=== PATIENT | male | born 1995 | race African-American/Black ===

== ENCOUNTER 2024-10-31 15:23 | Outpatient (AMB) | payer OTHER, SELFPAY ==
--- NOTE | 2024-10-31 15:25 | MHC.PC.OV ---
Vital Signs 10/31/24 15:32 Height 5 ft 7 in Weight 367 lb BMI 57.5 BP 138/73 Blood Pressure Location Rt brachial Position Sitting Respiration 16 Pulse 99 Pulse Source Pulse Oximeter Temp 98.7 F Temp Source Oral Pulse Oximetry (%) 98 Oxygen Delivery Method Room Air Intake Visit Reasons: Est. Care Intake Note: patient here for new patient visit Butter Liquefier Required: No Allergies No Known Allergies Allergy (Verified 10/31/24 15:39) Medication List - Last Reconciled 10/31/24 by Lydia Flynn CNP No Known Home Meds Tobacco use date assessed: 10/31/24 Dental Screening Dental Screen Date: 10/31/24 Did you have a dental visit in the last 12 months?: No Did you have a dental problem in the last 6 months where you did not have access to dental care?: No Was dental information given to patient?: Yes HPI HPI Comments History of Present Illness Details 29-year-old male presents to establish care. Prior PCP? - Dr. Chano Palacios, private practice Last office visit/CPE/labs - 2018 Acute issue(s) - None Past Medical History - Morbid obesity - Discoloration and hardened skin of the left calf to ankle for the past 3 years. Denies pain, swelling, tingling, numbness, or loss of sensation. Surgical History - None Family History - None Social History - Nonsmoker. Does not vape. Drinks 2 mixed drinks socially/every 6 months. Denies recreational drug use - Recently started making healthy dietary choices and have lost about 7 lb in the past 2 months. Exercises routinely. Generally sleep well Health maintenance - Last eye exam was 4-5 years ago. Referred to Ophthalmology for routine eye exam - Last dental visit was over about 7 years ago; encouraged to schedule an appointment with his dentist for routine dental care - Last tetanus vaccine was about 8 years ago. 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 1. Little interest or pleasure in doing things: several days 2. Feeling down, depressed, or hopeless: not at all 3. Trouble falling or staying asleep, or sleeping too much: more than half the days 4. Feeling tired or having little energy: more than half the days 5. Poor appetite or overeating: not at all 6. Feeling bad about yourself - or that you are a failure or have let yourself or your family down: not at all 7. Trouble concentrating on things, such as reading the newspaper or watching television: not at all 8. Moving or speaking so slowly that other people could have noticed. Or the opposite - being so fidgety or restless that you have been moving around a lot more than usual: not at all 9. Thoughts that you would be better off or of hurting yourself in some way: not at all Total score: 5 Depression Screening Interpretation: Positive Depression Screening Done: Yes 64886 - PHQ-9 Billing: Yes Source: Developed by Drs. Dave Coleman, Lara Sainz, Barrington Lerner and colleagues, with an educational florencio from [employer]. Thrive Questionnaire Date Thrive assessed: 10/31/24 I am a: Patient What is your living situation today?: I have a steady place to live Within the past 12 months, did the food you bought not last and you didn't have the money to get more?: Never true Within the past 12 months, did you worry whether your food would run out before you got money to buy more?: Sometimes True Do you have trouble paying for medicines?: I choose not to answer this question Do you have trouble getting transportation to medical appointments?: Yes Do you have trouble paying your heating and electricity bill?: No Do you have trouble taking care of your child, family member or friend?: No Do you have trouble with day-to-day activities such as bathing, preparing meals, shopping, managing finances, etc.?: No Are you currently unemployed and looking for a job?: No Are you interested in more education?: I choose not to answer this question Please select the resources that you would like help with: None Currently or been in a relationship where the following occur: No concerns reported THRIVE Score: 2 AUDIT C Alcohol Use Questionnaire (AUDIT-C) 1. How often do you have a drink containing alcohol?: Monthly or less 2. How many drinks containing alcohol do you have on a typical day when you are drinking?: 1 or 2 3. How often do you have six or more drinks on one occasion?: Never Total Score: 1 Score Reviewed/Action Taken: Yes COLBY-7 AMB Questionnaire COLBY-7 Date COLBY - 7 assessed: 10/31/24 Feeling nervous, anxious, or on edge: 0 = Not at all Not being able to stop or control worryin = Not at all Worrying too much about different things: 0 = Not at all Trouble relaxin = Not at all Being so restless that it is hard to sit still: 0 = Not at all Becoming easily annoyed or irritable: 0 = Not at all Feeling afraid as if something awful might happen: 0 = Not at all Total COLBY-7 score (0-4 normal; 5-9 mild; 10-14 moderate; 15-21 severe): 0 Source: Developed by Drs. Dave Coleman, Lara Sainz, Barrington Lerner and colleagues, with an educational florencio from [employer]. COLBY-7 Assessment Billing COLBY-7 Assessment Tool: COLBY-7 Assessment 98268 Review of Systems Const Details: Denies chills, Denies fatigue, Denies fever(s), Denies headache(s) and Denies weakness HEENT Denies change in vision, Denies dizziness, Denies headache(s), Denies hearing loss, Denies nasal congestion, Denies sinus pain, Denies sinus pressure and Denies sore throat Card Denies chest pain, Denies lightheadedness, Denies dyspnea and Denies other (palpitations) Resp Denies cough, Denies dyspnea and Denies wheezing GI Denies abdominal pain, Denies melena, Denies hematochezia, Denies change in bowel habits, Denies dyspepsia and Denies nausea Denies hematuria and Denies dysuria Musc Denies abnormal gait, Denies myalgias, Denies arthralgias, Denies numbness and Denies tingling Skin/Breast Denies rash, Denies unusual bruising and Denies wounds Neuro Denies abnormal gait, Denies dizziness, Denies headache(s), Denies memory loss, Denies numbness, Denies Sensory deficit (Neuro), Denies tingling and Denies weakness Psych Denies anxiety, Denies depression and Denies memory loss Endo Denies cold intolerance, Denies fatigue, Denies heat intolerance, Denies polydipsia and Denies polyuria Jesu/Lymph Denies easy bleeding and Denies easy bruising Aller/Immun Denies wheezing Physical exam (Primary Care) Vital Signs: Last Vital Signs Temp 98.7 F 10/31/24 15:32 Pulse 99 10/31/24 15:32 Resp 16 10/31/24 15:32 BP 138/73 10/31/24 15:32 Pulse Ox 98 10/31/24 15:32 Oxygen Delivery Method Room Air 10/31/24 15:32 BMI result Body Mass Index 57.5 Tobacco/Smoking Status: Tobacco use Status Tobacco use date assessed 10/31/24 10/31/24 15:32 Patient Tobacco Use Status Never used Tobacco 10/31/24 15:32 e-Cigarette/Vaping Use Never Used 10/31/24 15:32 PHQ-9: PHQ-9 Score PHQ-9: Total score 5 10/31/24 15:57 Depression Screening Interpretation: Positive Thrive Assessment: Date of Thrive Assessment Date Thrive assessed 10/31/24 10/31/24 15:26 Currently or been in a relationship where the following occur: No concerns reported Const Other: General: no acute distress, well developed, alert and awake Nutritional Appearance: well nourished Orientation/consciousness: patient oriented x3 HENMT Head: Yes normocephalic and Yes atraumatic Ears: hearing grossly normal bilaterally and TM's normal bilaterally General nose exam: Normal external nose present and Normal nares present Mouth: Normal oral and palatal mucosa present and moist mucous membranes Teeth and gingiva: dentition normal Throat: Yes oropharynx normal Eyes Pupils: Equal, round and reactive pupils present and Pupil accommodation reflex normal EOM: EOMs intact bilaterally Neck Neck: Yes normal visual inspection, Yes no lymphadenopathy and Yes trachea midline Thyroid: Thyroid normal Carotids: no bruits Lymphatic: no lymphadenopathy noted Chest Chest palpation & inspection: normal inspection of the chest Resp Effort & Inspection: normal respiratory effort Auscultation: clear to auscultation bilaterally Cardio Rate: regular rate Rhythm: regular rhythm Heart sounds: S1 normal heart sound present, S2 normal heart sound present, no gallops, no murmurs and no rubs Bruits: no abdominal aortic bruits and no carotid bruits GI Palpation (GI): No Abdominal aortic bruit present, Soft to palpation, nontender, No hepatosplenomegaly present and No Rebound tenderness present Auscultation: normal bowel sounds General: Yes no CVA tenderness Back/Spine/Pelvis Back: no CVA tenderness Cervical Spine: cervical ROM normal and No Cervical spine tenderness Thoracic/Lumbar Spine: thoraco-lumbar ROM normal, No pain with thoraco-lumbar ROM, No thoracic spinal tenderness and No lumbar spinal tenderness Skin General: warm and dry. Normal skin color. Normal skin turgor Lesions: no lesions Rashes: no rashes Trauma: no lacerations or abrasions Wounds: no wounds Nails: normal Neuro General: patient oriented x3, gait normal and CN's II-XI intact bilaterally Cranial nerves: Yes Equal, round and reactive pupils present Cognition (Neuro): normal cognition Gait exam (Neuro): Normal gait present Motor exam (neuro): 5/5 motor strength present throughout Sensory Exam: No Sensory deficit (Neuro) Deep tendon reflexes (DTR's): Right patellar reflex intensity grade: 2+ and Left patellar reflex intensity grade: 2+ Extrem General: Yes normal to inspection, No edema and No calf tenderness. Positive black discolored and hurting skin of the mid left calf to ankle. Psych Appearance: grossly normal Affect: normal affect Attitude: cooperative Thought process: Normal thought process present Coding Level of Care Code New Pt Level 3 (19287) New Pt Prev Care 18-39yr(92150 Diagnoses Normal physical examination, routine Z00.00 Eye exam, routine Z01.00 Morbid obesity with BMI of 50.0-59.9, adult E66.01; Z68.43 Poor circulation of extremity R09.89 Laboratory tests ordered as part of a complete physical exam (CPE) Z00.00 Additional Codes COLBY-7 Assessment Billing - COLBY-7 Assessment Tool: COLBY-7 Assessment 91503 ([id number]) PHQ-9 - 75494 - PHQ-9 Billing: Yes ([id number]) Assessment & Plan Assessment & Plan (1) Normal physical examination, routine: Code(s): Z00.00 - Encounter for general adult medical examination without abnormal findings Category: Medical Plan: No significant functional limitation noted. Advised to perform lab work and follow-up for telehealth visit in 2-3 weeks for labs review. Return sooner with symptoms or concerns. Verbalized understanding and agreed with treatment plan. (2) Eye exam, routine: Code(s): Z01.00 - Encounter for examination of eyes and vision without abnormal findings Category: Medical Plan: His last eye exam was 4-5 years ago. Referred to Ophthalmology for routine eye exam. (3) Morbid obesity with BMI of 50.0-59.9, adult: Code(s): E66.01 - Morbid (severe) obesity due to excess calories; Z68.43 - Body mass index [BMI] 50.0-59.9, adult Category: Medical Plan: He currently weighs 367 lb, BMI is 57.5. He recently started making healthy dietary choices and have lost about 7 lb in the past 2 months. Healthy diet and routine exercise encouraged. Referred to weight management as requested. Follow-up as needed. Verbalized understanding and agreed with treatment plan. (4) Poor circulation of extremity: Code(s): R09.89 - Other specified symptoms and signs involving the circulatory and respiratory systems Category: Medical Plan: Discoloration and hardened skin of the left calf to ankle for the past 3 years. No pain, swelling, tingling, numbness, or loss of sensation. Positive black discolored and hurting skin of the mid left calf to ankle. Positive pedal pulse bilaterally. Positive posterior tibial pause not palpable to the left lower extremity. Chronic venous insufficiency or peripheral artery disease is possible. Referred to [facility] vascular surgery. (5) Laboratory tests ordered as part of a complete physical exam (CPE): Code(s): Z00.00 - Encounter for general adult medical examination without abnormal findings Category: Medical Plan: Fasting labs ordered as part of a complete physical exam. Advised to fast for at least 10 hours before getting labs drawn. May drink water Verbalized understanding and agreed with treatment plan. Orders: Orders Complete Blood Count Auto Diff 10/31/24 Z. - Encounter for general adult medical examination without abnormal findings TSH reflex Free T4 10/31/24 Z. - Encounter for general adult medical examination without abnormal findings Comprehensive [place]. Panel Fast 10/31/24 Z. - Encounter for general adult medical examination without abnormal findings Lipid Panel 10/31/24 Z00.00 - Encounter for general adult medical examination without abnormal findings UA CC w/rflx Micro + Cult 10/31/24 Z. - Encounter for general adult medical examination without abnormal findings Vitamin D 25-OH Total 10/31/24 Z. - Encounter for general adult medical examination without abnormal findings Referrals Ophthalmology Referral Z01.00 - Encounter for examination of eyes and vision without abnormal findings Medical Weight Management Referral E66.01 - Morbid (severe) obesity due to excess calories, Z68.43 - Body mass index [BMI] 50.0-59.9, adult Vascular Surgery Referral R09.89 - Other specified symptoms and signs involving the circulatory and respiratory systems
[2024-10-31 15:32] VITALS: BP 138/73; PULSE 99; RESP 16; TEMP 37.1; O2SAT 98; BMI 57.5
--- OUTSIDE RECORDS SUMMARY | 2024-10-31 19:11 | XMS_ITS ---
Author Organization Unknown Patient Care team information Name Category Status Period Participants - - Proposed period not known -
== END 2024-10-31 16:08 | disposition home or self-care (01) ==
PROVIDERS: PCP Nurse Practitioner Family; Visit Provider Nurse Practitioner Family
DX: Z00.00 Encounter for general adult medical examination without abnormal findings (principal); E66.01 Morbid (severe) obesity due to excess calories; Z68.43 Body mass index [BMI] 50.0-59.9, adult; R09.89 Other specified symptoms and signs involving the circulatory and respiratory systems

== ENCOUNTER → 2024-10-31 15:23 | Outpatient (BNVA) | payer OTHER, SELFPAY | PROVIDERS: PCP Nurse Practitioner Family; Visit Provider Nurse Practitioner Family | DX: Z00.00 Encounter for general adult medical examination without abnormal findings (principal); E66.01 Morbid (severe) obesity due to excess calories; Z68.43 Body mass index [BMI] 50.0-59.9, adult; R09.89 Other specified symptoms and signs involving the circulatory and respiratory systems | CPT/HCPCS: 96127 ==

== ENCOUNTER 2024-11-02 15:17 | Outpatient (AMB) | payer OTHER, SELFPAY ==
--- NOTE | 2024-11-02 15:25 | MHC.OFFVIS ---
Intake Visit Reasons: SLEEVE [employer]TER [employer]AF[employer] STITCH/PCP referral for PVD Intake Note: New patient presents for PVD. Patient has discoloration on his left left mid calf down to the ankle. 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 The issue began two years ago without clear precipitating events. The swelling is persistent and has a notable discoloration. There is no involvement of the right leg, no associated pain, nor difficulty in ambulation. The patient has sought care previously at urgent care and a hospital ER without resolution. He has not smoked, does not have diabetes. 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 It is noted more so in left leg. Patient denies any previous venous surgery or injections. Patient denies any history of DVT/ PE. - his mother does have a history of a DVT Patient denies any history of phlebitis. Trial of compression includes - [id number] They now present for vascular evaluation regarding their varicose veins. [facility] Social History Housing: Apartment Patient Tobacco Use Status: Never used Tobacco e-Cigarette/Vaping Use: Never Used Second Hand Smoke Exposure: No service: No Current occupational status: employed Current occupation: cyber human capital consultant Current occupational exposures/hazards: No Cognitive needs: No Hearing needs: No Vision needs: No Review of Systems Const Reports as per HPI ENT Reports no additional complaints Card Denies chest pain, Denies chest pain at rest and Denies chest pain with activity Resp Denies chest congestion and Denies cough GI Reports no additional complaints Musc Details: pain over varicosities, aching of lower extremities, swelling, cramping, heaviness and tiredness, itching Denies abnormal gait Skin/Breast Reports pruritus and Denies wounds Neuro Reports no additional complaints and Denies abnormal gait Psych Denies no additional complaints Physical Exam Const General: cooperative, healthy appearing and comfortable Orientation/consciousness: oriented to person, oriented to place and oriented to time Neck Carotids: no bruits Chest Chest palpation & inspection: normal inspection of the chest and normal palpation of entire chest wall Resp Effort & Inspection: normal respiratory effort and able to speak in complete sentences Cardio Rate: regular rate Heart sounds: S1 normal heart sound present and S2 normal heart sound present Peripheral pulses: Peripheral pulses 2+ throughout GI Inspection: Yes normal to inspection Skin Other: +2 edema, left leg CEAP Classification C4 - skin color changes Ep - Etiology Primary As - superficial veins P - reflux General skin exam: dry skin Neuro General: oriented to person, oriented to place and oriented to time Extrem Right lower extremity: full ROM, normal capillary refill and edema Left lower extremity: full ROM, normal capillary refill and edema Psych Mental Status: mental status grossly normal Assessment & Plan Assessment & Plan (1) Varicose veins of left lower extremity with inflammation: Code(s): I83.12 - Varicose veins of left lower extremity with inflammation Category: Medical Plan: In short, the patient has evidence of venous insufficiency. I have discussed the pathophysiology with the patient. In addition I have provided informational material regarding venous disease to the patient. We have discussed conservative measures including compression, elevation, and exercise. I have also provided a handout regarding appropriate use of compression stockings and where to purchase good compression stockings as well. I have taken the liberty of ordering venous insufficiency testing with the patient. They will follow up with me after testing. The patient had an opportunity to ask questions regarding the treatment plan. All questions were answered. Imaging studies, laboratory studies and physical exam results were discussed and reviewed in detail. No major barriers to understanding were identified. The patient expressed understanding and agreement with the above treatment plan. The patient is aware they should contact our office by phone for worsening of the current condition or the appearance of new symptoms. Thank you for allowing me to participate in the vascular care of this patient. If you have any questions or concerns regarding the treatment for the above condition please do not hesitate to contact me. The office telephone contact is [phone]. This note is constructed using voice recognition software. While every effort has been made to ensure accuracy, acrobatic rigger errors may have been included. Thank you for allowing me to participate in the care of your patient. Yours sincerely, Fernando Quispe MD, FACS, R.P.V.I. Plan Patient was informed and verbally consented to the use of an ambient scribe for clinic note documentation during this visit. Orders: Orders US venous duplex LE BI 1 Week I83.12 - Varicose veins of left lower extremity with inflammation Patient Instructions: - Wear compression stockings consistently to manage leg swelling. - Elevate legs whenever possible, especially when at home. - Incorporate movement throughout the day; consider standing desks and calf exercises to promote circulation. - Monitor symptoms and report any significant changes; particularly warm, worsening swelling, or pain which could indicate complications. - Await results of scheduled venous ultrasound; further treatments will be discussed based on these findings. - Follow-up as instructed to discuss ultrasound results and next steps in management. Coding Level of Care Code New Pt Level 4 (63802) Complex EM visit Add On G2211 Diagnoses Varicose veins of left lower extremity with inflammation I83.12
== END 2024-11-02 15:48 | disposition home or self-care (01) ==
PROVIDERS: PCP Nurse Practitioner Family; Visit Provider Surgery Vascular Surgery
DX: I83.12 Varicose veins of left lower extremity with inflammation (principal)
CPT/HCPCS: 99204

== ENCOUNTER 2024-11-10 07:03 | Outpatient (REF) | payer OTHER, SELFPAY ==
[2024-11-10 10:01] LABS: Appearance Urine Clear; Color Urine Yellow; Glucose Urine UA Negative (Negative); Leukocyte Esterase Urine Negative (Negative); Nitrite Urine Negative (Negative); Urine Blood Negative (Negative); Urine Ketones Negative (Negative); Urine Protein Negative (Neg-Trace)
[2024-11-10 10:01] LABS: MANUAL DIFF FLAG NO
[2024-11-10 10:24] LABS: Basophils Absolute Auto 0.1 X10*3/uL (0.0-0.2); Basophils Percent Auto 0.9 % (0-2); Eosinophils Absolute Auto 0.2 X10*3/uL (0.0-0.4); Hematocrit 38.1 % (42.0-52.0); Hemoglobin 11.7 g/dl (14.0-18.0); Imm Gran Abs Auto 0.01 X10*3/uL (0.00-0.03); Imm Gran Pct Auto 0.2 % (0.0-0.4); Lymphocytes Absolute Auto 2.1 X10*3/uL (1.2-4.9); Lymphocytes Percent Auto 39.2 % (20-40); Mean Corpuscular HGB Conc 30.7 g/dl (31.0-36.0); Mean Corpuscular Hemoglobin 22.2 pg (27.0-33.0); Mean Corpuscular Volume 72.2 fL (80.0-98.0); Mean Platelet Volume 10.6 fL (9.4-12.4); Monocytes Absolute Auto 0.5 X10*3/uL (0.1-1.2); Monocytes Percent Auto 8.7 % (2-11); Neutrophils Absolute Auto 2.5 x10*3/uL (2.0-8.3); Platelet Count 371 X10*3/uL (160-400); Red Blood Count 5.28 X10*6/uL (4.60-5.80); Red Cell Distribution Width 16.9 % (11.0-16.0); White Blood Count 5.3 X10*3/uL (4.8-10.8)
[2024-11-10 10:58] LABS: Alanine Aminotransferase 44 U/L (0-40); Alkaline Phosphatase 94 U/L (39-117); Anion Gap 12 (12-20); Aspartate Amino Transferase 31 U/L (5-37); Bilirubin Total 0.3 mg/dL (0.0-1.0); Blood Urea Nitrogen 13 mg/dL (9-16); Calcium 9.4 mg/dL (8.4-10.2); Carbon Dioxide 24 mmol/L (22-29); Chloride 106 mmol/L (96-108); Cholesterol 175 mg/dL (<200); Estimated Glomerular Filt Rate > 60; Glucose Fasting 91 mg/dL (60-99); HDL Cholesterol 38 mg/dL (>40); LDL Cholesterol Calculated 124 mg/dL (<100); Potassium 4.1 mmol/L (3.3-5.1); Sodium 138 mmol/L (135-145); TSH reflex Free T4 1.93 uIU/mL (0.32-4.0); Total Protein 8.3 g/dL (6.5-8.0); Triglycerides 69 mg/dL (<150); Vitamin D 25-OH Total 35.6 ng/mL (>30)
== END 2024-11-10 07:04 | disposition home or self-care (01) ==
LOC: HO.HMGCLDS 07:03
PROVIDERS: PCP Nurse Practitioner Family; Visit Provider Nurse Practitioner Family
DX: Z00.00 Encounter for general adult medical examination without abnormal findings (principal); Z13.6 Encounter for screening for cardiovascular disorders
CPT/HCPCS: 36415; 80053; 80061; 81003; 82306; 84443; 85025

== ENCOUNTER 2024-11-17 09:47 | Outpatient (AMB) | payer OTHER, SELFPAY ==
--- NOTE | 2024-11-17 09:43 | A.OFFPC_ITS ---
Intake Visit Reasons: Telehealth 2-3 wks labs review Intake Note: patient here for 2-3 follow up telehealth for lab review Company Tanker Truck Driver Required: No Allergies No Known Allergies Allergy (Verified 11/17/24 09:44) Tobacco use date assessed: 11/17/24 Dental Screening Dental Screen Date: 11/17/24 Did you have a dental visit in the last 12 months?: No Did you have a dental problem in the last 6 months where you did not have access to dental care?: No Was dental information given to patient?: No HPI HPI Comments History of Present Illness Details 29-year-old male presents for telehealth visit for review of recent lab results. He offers no complaints and denies acute symptoms at this time. 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 Current occupational exposures/hazards: No Cognitive needs: No Hearing needs: No Vision needs: No Questionnaire Thrive Questionnaire Date Thrive assessed: 10/30/24 I am a: Patient What is your living situation today?: I have a steady place to live Within the past 12 months, did the food you bought not last and you didn't have the money to get more?: Never true Within the past 12 months, did you worry whether your food would run out before you got money to buy more?: Sometimes True Do you have trouble paying for medicines?: I choose not to answer this question Do you have trouble getting transportation to medical appointments?: Yes Do you have trouble paying your heating and electricity bill?: No Do you have trouble taking care of your child, family member or friend?: No Do you have trouble with day-to-day activities such as bathing, preparing meals, shopping, managing finances, etc.?: No Are you currently unemployed and looking for a job?: No Are you interested in more education?: I choose not to answer this question Please select the resources that you would like help with: None Currently or been in a relationship where the following occur: No concerns reported THRIVE Score: 2 COLBY-7 AMB Questionnaire COLBY-7 Date COLBY - 7 assessed: 10/31/24 Source: Developed by Drs. Dave Coleman, Lara Sainz, Barrington Lerner and colleagues, with an educational florencio from [employer]. Review of Systems Const Details: Denies chills, Denies fatigue, Denies fever(s), Denies headache(s) and Denies weakness Cardiac Denies chest pain, Denies claudication, Denies leg edema, Denies lightheadedness, Denies palpitations, Denies dyspnea, Denies dyspnea on exertion, Denies orthopnea and Denies other (Loss of consciousness) Resp Denies cough, Denies excessive phlegm production, Denies dyspnea, Denies dyspnea on exertion, Denies snoring and Denies wheezing Physical exam (Primary Care) Tobacco/Smoking Status: Tobacco use Status Tobacco use date assessed 11/17/24 11/17/24 09:45 Patient Tobacco Use Status Never used Tobacco 11/17/24 09:45 e-Cigarette/Vaping Use Never Used 11/17/24 09:45 Thrive Assessment: Date of Thrive Assessment Date Thrive assessed 10/30/24 11/17/24 09:45 Currently or been in a relationship where the following occur: No concerns reported Const Other: The patient is alert and oriented x3 Telehealth Telehealth Telehealth Platform: Telephone Location of provider rendering services: practice address Location of patient: address on file Patient Identification confirmed using: Name, : Yes Telehealth method: voice only Patient verbally consented to treatment: Yes Patient verbally consented to billing insurance company: Yes Patient informed of any privacy concerns related to visit: Yes Coding Level of Care Code Tele New Pt Level 4 (76642) Diagnoses Microcytic anemia D50.9 Elevated ALT measurement R74.01 Dyslipidemia E78.5 Time Spent (min) 15 Assessment & Plan Assessment & Plan (1) Microcytic anemia: Code(s): D50.9 - Iron deficiency anemia, unspecified Category: Medical Plan: Recent H&H are slightly low, 11.7/38.1, MCV is low, 72.2. Likely iron-deficiency anemia. Will check iron profile, ferritin level, vitamin B12, and folate levels. Follow-up for a telehealth visit in 2 weeks or sooner with symptoms or concerns. Verbalized understanding and agreed with treatment plan. (2) Elevated ALT measurement: Code(s): R74.01 - Elevation of levels of liver transaminase levels Category: Medical Plan: ALT level is slightly elevated, 44. Fatty liver disease is possible. Healthy diet, including low-fat and routine exercise encouraged. Will recheck liver enzyme in 3 months. Verbalized understanding and agreed with treatment plan. (3) Dyslipidemia: Code(s): E78.5 - Hyperlipidemia, unspecified Category: Medical Plan: Recent LDL is slightly elevated, 124, HDL is slightly low, 34. Advised to limit foods high in saturated fat and avoid foods high in trans fat. Routine exercise encouraged. Will recheck lipid panel level in 3 months. Verbalized understanding and agreed with treatment plan. Orders: Orders Vitamin B12 and Folate Today D50.9 - Iron deficiency anemia, unspecified IRON PROFILE Today D50.9 - Iron deficiency anemia, unspecified Ferritin Today D50.9 - Iron deficiency anemia, unspecified Lipid Panel 3 Months E78.5 - Hyperlipidemia, unspecified Liver Panel 3 Months E78.5 - Hyperlipidemia, unspecified
== END 2024-11-17 12:57 | disposition home or self-care (01) ==
LOC: HO.HMCFM 09:47
PROVIDERS: PCP Nurse Practitioner Family; Visit Provider Nurse Practitioner Family
DX: D50.9 Iron deficiency anemia, unspecified (principal); R74.01 Elevation of levels of liver transaminase levels; E78.5 Hyperlipidemia, unspecified

== ENCOUNTER 2024-11-18 08:25 | Outpatient (REF) | payer OTHER, SELFPAY ==
[2024-11-18 11:55] LABS: Iron 56 mcg/dL (45-160); Percent Iron Saturation 20 % (15-50); Total Iron Binding Capacity 281 mcg/dL (228-428); Unsaturated Iron Binding 225 ug/dL
[2024-11-18 12:21] LABS: Folate 15.6 ng/mL (> or = 4.0); Vitamin B12 724 pg/mL (200-900)
[2024-11-18 12:22] LABS: Ferritin 171 ng/mL (20-250)
== END 2024-11-18 08:26 | disposition home or self-care (01) ==
LOC: HO.HMGCLDS 08:25
PROVIDERS: PCP Nurse Practitioner Family; Visit Provider Nurse Practitioner Family
DX: D50.9 Iron deficiency anemia, unspecified (principal)
CPT/HCPCS: 36415; 82607; 82728; 82746; 83540

== ENCOUNTER 2025-01-19 08:39 | Outpatient (REF) | payer OTHER, SELFPAY ==
--- NOTE | ~2025-01-19 | US_ITS ---
EXAMINATION: US LOWER EXTREMITY VENOUS (REFLUX EXAM), BILATERAL CLINICAL INFORMATION: Varicose veins of left lower extremity with inflammation. COMPARISON: None. TECHNIQUE: Color flow triplex imaging and compression Doppler was performed to evaluate both the deep and the superficial systems bilaterally. To evaluate the superficial system, the examination was performed in the upright position. Color-flow Doppler ultrasound and compression ultrasound were utilized. In addition, maneuvers were utilized to demonstrate reflux. FINDINGS: 1. DEEP VENOUS ULTRASOUND OF THE RIGHT LOWER EXTREMITY: Common Femoral Vein: Compressible, normal respiratory variation and augmented flow. Femoral Vein: Compressible, normal color flow and augmentation. Popliteal Vein: Compressible, normal augmentation. Deep Reflux: There is no evidence of reflux in the deep system in either the common femoral vein, superficial femoral or the popliteal vein. There is no evidence of a Pardo's cyst. 2. SUPERFICIAL ULTRASOUND WITH DOPPLER OF RIGHT LOWER EXTREMITY: GREAT SAPHENOUS VEIN: Saphenofemoral Junction: 0.6 cm; Reflux: 0 ms Proximal Thigh: 0.7 cm; Reflux: 0 ms Mid Thigh: 0.8 cm; Reflux: 0 ms Distal Thigh: 0.6 cm; Reflux: 0 ms At Knee: 0.4 cm; Reflux: 0 ms Proximal Calf: 0.3 cm; Reflux: 0 ms Mid Calf: 0.3 cm; Reflux: 0 ms Distal Calf: 0.4 cm; Reflux: 0 ms DUPLICATED MEDIAL GREAT SAPHENOUS VEIN: Not imaged. DUPLICATED LATERAL GREAT SAPHENOUS VEIN: Diameter: 0.5 Reflux: 0 ms SMALL SAPHENOUS VEIN: Saphenopopliteal Junction: 0.5 cm; Reflux: 0 ms Proximal: 0.3 cm; Reflux: 0 ms Distal: 1.3 cm; Reflux: 0 ms VEIN OF GIACOMINI: Not imaged. PERFORATORS: Greater saphenous vein and midcalf, 0.3 cm, no reflux. 21 cm from the heel, 0.3 cm, 1224 ms reflux. VARICOSITIES: Greater saphenous vein distal thigh, 0.4 cm, no reflux. Greater saphenous vein at the knee, 0.5 cm, no reflux. Greater saphenous vein at the knee, 0.4 cm, no reflux. Greater saphenous vein at the mid calf, 0.4 cm, no reflux. 3. DEEP VENOUS ULTRASOUND OF THE LEFT LOWER EXTREMITY: Common Femoral Vein: Compressible, normal respiratory variation and augmented flow. Femoral Vein: Compressible, normal color flow and augmentation. Popliteal Vein: Compressible, normal augmentation. Deep Reflux: There is no evidence of reflux in the deep system in either the common femoral vein, superficial femoral or the popliteal vein. There is no evidence of a Pardo's cyst. 4. SUPERFICIAL ULTRASOUND WITH DOPPLER OF LEFT LOWER EXTREMITY: GREAT SAPHENOUS VEIN: Saphenofemoral Junction: 0.8 cm; Reflux: 0 ms Proximal Thigh: 0.7 cm; Reflux: 0 ms Mid Thigh: 0.8 cm; Reflux: 0 ms Distal Thigh: 0.7 cm; Reflux: 0 ms At Knee: 0.7 cm; Reflux: 0 ms Proximal Calf: 0.5 cm; Reflux: 0 ms Mid Calf: 0.4 cm; Reflux: 0 ms Distal Calf: 0.3 cm; Reflux: 0 ms DUPLICATED MEDIAL GREAT SAPHENOUS VEIN: Not imaged. DUPLICATED LATERAL GREAT SAPHENOUS VEIN: Not imaged. SMALL SAPHENOUS VEIN: Not seen. VEIN OF GIACOMINI: Not imaged. PERFORATORS: Location: Greater saphenous vein and proximal calf Size: 0.3 cm Reflux: 0 ms. VARICOSITIES: Greater saphenous vein at the knee, 0.4 cm, no reflux. Greater saphenous vein and proximal calf, 0.3 cm, no reflux. Greater saphenous vein at the proximal calf, 0.3 cm, no reflux. Greater saphenous vein at the mid calf, 0.3 cm, no reflux. Greater saphenous vein at the mid calf, 0.3 cm, no reflux. Greater saphenous vein at the distal calf, 0.4 cm, 1224 ms reflux. Greater saphenous vein at the distal calf, 0.3 cm, no reflux. US/US venous duplex LE BI IMPRESSION: RIGHT: 1. No DVT or significant deep venous reflux. 2. No significant reflux in the superficial venous system. 3. Greater saphenous vein varicosities x4 as discussed. No reflux. LEFT: 1. No DVT or significant deep venous reflux. 2. No significant reflux in the superficial venous system. 3. Greater saphenous vein varicosities x7 as discussed, one in the distal calf with 1224 ms reflux. Electronically signed by: Memo Vale MD 01/22/2025 10:35 AM EDT
--- OUTSIDE RECORDS SUMMARY | 2025-01-19 08:51 | XMS_ITS | Clinical Summary ---
Author Organization [address] [place] [address] Address [address] [place] [address] Phone Care Team Providers Care Business Practices Supervisor Name Role Phone Lydia Flynn MILA Primary Care Provider [phone] Allergies No known active allergies Medications tirzepatide, weight loss, (Zepbound) 2.5 mg/0.5 mL injectionIndicat ions:Class 3 severe obesity due to excess calories with body mass index (BMI) of 50.0 to 59.9 in adult, unspecified whether serious comorbidity present (CMS/HCC V24, CMS/HCC V28) Inject 0.5 mL (2.5 mg total) under the skin every 7 (seven) days for 4 doses. 2 mL 01/08/2025 5 Active Encounters Date Type Department Care Team Description 01/08/2025 3:30 PM EDT Consult Bariatric Surgery [facility] [address] [facility] [address] [place] [address] Lo Blas MD Class 3 severe obesity due to excess calories with body mass index (BMI) of 50.0 to 59.9 in adult, unspecified whether serious comorbidity present (CMS/HCC V24, CMS/HCC V28) (Primary Dx) from Last 3 Months Social History Tobacco Use Types Packs/Day Years Used Date Smoking Tobacco: Never Assessed Sex and Gender Information Value Date Recorded Sex Assigned at Not on file Legal Sex Male 4:08 AM EST Gender Identity Not on file Sexual Orientation Not on file Last Filed Vital Signs Vital Sign Reading Time Taken Comments Blood Pressure 139/81 01/08/2025 3:28 PM EDT Pulse 86 01/08/2025 3:28 PM EDT Temperature 36.6 ??C (97.8 ??F) 01/08/2025 3:28 PM ED T Respiratory Rate - - Oxygen Saturation - - Inhaled Oxygen Concentration - - Weight 166 kg (365 lb) 01/08/2025 3:28 PM EDT Height 170.2 cm (5' 7 ) 01/08/2025 3:28 PM EDT Body Mass Index 57.17 01/08/2025 3:28 PM EDT Plan of Treatment Health Maintenance Due Date Last Done Comments DTaP,Tdap,and Td Vaccines (1 - Tdap) 2012 Hepatitis B Vaccines (1 of 3 - 19+ 3-dose series) 2012 COVID-19 Vaccine (2023-2 5 season) 2024 Cholesterol Screening (Lipid Panel) 12/26/2024 Depression Screening 12/26/2024 HIV Screening 12/26/2024 Hepatitis C Screening 12/26/2024 Social Influencers of Health Screening 12/26/2024 Influenza Vaccine (Season Ended) 2025 HIB Vaccines Aged Out No longer eligi ble based on patient's age to complete this topic HPV Vaccines Aged Out No longer eligi ble based on patient's age to complete this topic Hepatitis A Vaccines Aged Out No long er eligible based on patient's age to complete this topic IPV Vaccines Aged Out No longer eligi ble based on patient's age to complete this topic MMR Vaccines Aged Out No longer eligi ble based on patient's age to complete this topic Meningococcal ACWY Vaccine Aged Out N o longer eligible based on patient's age to complete this topic Meningococcal B Vaccine Aged Out No l onger eligible based on patient's age to complete this topic Pneumococcal Vaccine: Pediat rics (0 to 5 Years) and At-Risk Patients (6 to 64 Years) Aged Out No longer eligible b ased on patient's age to complete this topic RSV Immunization Patients Un alea 20 months Aged Out No longer eligible b ased on patient's age to complete this topic Varicella Vaccines Aged Out No longer eligible based on patient's age to complete this topic Insurance [employer] Care Teams Business Practices Supervisor Relationship Specialty Start Date End Date Lydia Flynn FNP [address] [place] [address] PCP - General Family Medicine 12/25/24
== END 2025-01-19 08:40 | disposition home or self-care (01) ==
LOC: HO.US 08:39
PROVIDERS: PCP Nurse Practitioner Family; Visit Provider Surgery Vascular Surgery
DX: I83.12 Varicose veins of left lower extremity with inflammation (principal)
CPT/HCPCS: 93970

== ENCOUNTER → 2025-01-19 08:41 | Outpatient (BNV) | payer OTHER, SELFPAY | PROVIDERS: PCP Nurse Practitioner Family; Visit Provider Radiology Diagnostic Radiology | DX: I83.893 Varicose veins of bilateral lower extremities with other complications (principal) | CPT/HCPCS: 93970 ==

== ENCOUNTER 2025-03-08 09:54 | Outpatient (AMB) | payer OTHER, SELFPAY ==
[2025-03-08 09:57] VITALS: BMI 57.5
--- NOTE | 2025-03-08 09:57 | A.OFFVIS_ITS ---
Vital Signs 03/08/25 09:57 Height 5 ft 7 in Weight 367 lb BMI 57.5 Intake Visit Reasons: follow up s/p 01/19/25 Intake Note: Pt presents to the office today for a follow up s/p 01/19/25 . Allergies No Known Allergies Allergy (Verified 03/08/25 09:57) HPI HPI follow up s/p 01/19/25: Details: The patient is a 29-year-old male presenting with tightness and irritation in the left leg. He reports that the tightness becomes more pronounced during workouts, particularly affecting the left leg, while the right leg remains relatively unaffected. The patient has noticed skin color changes and a size discrepancy between the legs, with the left leg appearing tighter and larger. The patient has been using compression stockings daily since the last visit, which he believes has helped lighten the skin color changes. He elevates his legs during the day, especially while working from home, to alleviate symptoms. The patient engages in regular walking to improve circulation. He now presents for routine venous insufficiency testing follow-up. 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 Current occupational exposures/hazards: No Cognitive needs: No Hearing needs: No Vision needs: No Review of Systems Const Reports as per HPI ENT Reports no additional complaints Card Denies chest pain, Denies chest pain at rest and Denies chest pain with activity Resp Denies chest congestion and Denies cough GI Reports no additional complaints Musc Details: pain over varicosities, aching of lower extremities, swelling, cramping, heaviness and tiredness, itching Denies abnormal gait Skin/Breast Reports pruritus and Denies wounds Neuro Reports no additional complaints and Denies abnormal gait Psych Denies no additional complaints Physical Exam Vital Signs: BMI result Body Mass Index 57.5 Const General: cooperative, healthy appearing and comfortable Orientation/consciousness: oriented to person, oriented to place and oriented to time Neck Carotids: no bruits Chest Chest palpation & inspection: normal inspection of the chest and normal palpation of entire chest wall Resp Effort & Inspection: normal respiratory effort and able to speak in complete sentences Cardio Rate: regular rate Heart sounds: S1 normal heart sound present and S2 normal heart sound present Peripheral pulses: Peripheral pulses 2+ throughout GI Inspection: Yes normal to inspection Skin Other: +2 edema, left greater than right CEAP Classification C4 - skin color changes Ep - Etiology Primary As - superficial veins P - reflux General skin exam: dry skin Neuro General: oriented to person, oriented to place and oriented to time Extrem Other: Right in cm: Thigh 78 Knee 54.5 Calf 53.5 Ankle 30 Left in cm: Thigh 76 Knee 52.5 Calf 55.5 Ankle 31 Hip/waist 135.5 Right lower extremity: full ROM, normal capillary refill and edema Left lower extremity: full ROM, normal capillary refill and edema Psych Mental Status: mental status grossly normal Results Reviewed Results Reviewed: Brief summary of venous insufficiency testing is as follows: right great saphenous vein: negative right small saphenous vein: negative right accessory vein: none present left great saphenous vein: negative left small saphenous vein: negative left accessory vein: none present Please note there is no evidence of any venous aneurysms or significant tortuosity Assessment & Plan Assessment & Plan (1) Varicose veins of left lower extremity with inflammation: Code(s): I83.12 - Varicose veins of left lower extremity with inflammation Category: Medical Plan: In short patient is negative for any significant venous insufficiency. We will work him up for lymphedema. (2) Lymphedema: Code(s): I89.0 - Lymphedema, not elsewhere classified Category: Medical Plan: In short the patient has late on sent lymphedema. The patient has been on conservative treatment for at least 3 months with minimal relief. Patient has tried 30 mm of mercury compression garments, elevation, exercise healthy diet and doing manual says self MLD to the best of their ability for over 4 weeks but with no significant relief. She has been compliant with the program but has provided minimal relief. In addition on physical we are noticing hyperpigmentation, lymphorrhea, and hyperplasia. It appears that she has stage 2 lymphedema. Patient has completed multiple forms of conservative therapy yet significant symptoms remain. Patient requires the use of a pneumatic compression device which we will assist in trying to have the patient obtain them. A pneumatic compression device will help reduce swelling and other lymphedema comorbidities. Thank you for allowing us to assist in this giana ent's care. Coding Level of Care Code Est Pt Level 4 (55865) Complex EM visit Add On G2211 Diagnoses Varicose veins of left lower extremity with inflammation I83.12 Lymphedema I89.0
--- OUTSIDE RECORDS SUMMARY | 2025-03-08 10:29 | XMS_ITS | Clinical Summary ---
Author Organization [address] [place] [address] Address [address] [place] [address] Phone Care Team Providers Care Glazing Superintendent Name Role Phone RinaLydia anderson MILA Primary Care Provider [phone] Allergies No known active allergies Medications No known medications Encounters Date Type Department Care Team Description 01/08/2025 3:30 PM EDT Consult Bariatric Surgery [facility] [address] [facility] [address] [place] [address] Lo Blas MD Class 3 [...] 86 01/08/2025 3:28 PM EDT Temperature 36.6 C (97.8 F) 01/08/2025 3:28 PM EDT Respiratory Rate - - Oxygen Saturation - [...] - 19+ 3-dose series) 2012 COVID-19 Vaccine (1 - 2023-2 5 season) 2024 Cholesterol Screening (Lipid Panel) [...] complete this topic Insurance [employer] Care Teams Glazing Superintendent Relationship Specialty Start Date End Date Lydia Flynn FNP [address] [place] [address] PCP - General Family Medicine 12/25/24
== END 2025-03-08 10:08 | disposition home or self-care (01) ==
LOC: HO.HVS 09:54
PROVIDERS: PCP Nurse Practitioner Family; Visit Provider Surgery Vascular Surgery
DX: I83.12 Varicose veins of left lower extremity with inflammation (principal); I89.0 Lymphedema, not elsewhere classified
CPT/HCPCS: 99214

== ENCOUNTER 2025-03-30 07:04 | Outpatient (REF) | payer OTHER, SELFPAY ==
--- OUTSIDE RECORDS SUMMARY | 2025-03-30 07:06 | XMS_ITS | Clinical Summary ---
Author Organization [address] [place] [address] Address [address] [place] [address] Phone Care Team Providers Care Virtual Classroom Manager Name Role Phone RinaLydia anderson MILA Primary Care Provider [phone] Allergies No known active allergies Medications No known medications Encounters Date Type Department Care Team Description 01/08/2025 3:30 PM EDT Consult Bariatric Surgery [facility] [address] [facility] [address] [place] [address] Lo Blas MD Class 3 [...] Vaccine (1 - 2023-2 5 season) 2024 Depression Screening 09/06/2024 Cholesterol Screening (Lipid Panel) 12/26/2024 HIV Screening 12/26/2024 Hepatitis C Screening 12/26/2024 Social Influencers of Health Screening 12/26/2024 Influenza Vaccine (#1) 2025 HIB Vaccines Aged Out No longer [...] 5 Years) and At-Risk Patients (6 to 49 Years) Aged Out No longer eligible b ased on patient's age to complete this topic RSV Immunization Patients Un alea 20 months Aged Out No longer eligible b ased on patient's age to complete this topic Varicella Vaccines Aged Out No longer eligible based on patient's age to complete this topic Insurance [employer] Care Teams Virtual Classroom Manager Relationship Specialty Start Date End Date Lydia Flynn FNP [address] [place] [address] PCP - General Family Medicine 12/25/24
[2025-03-30 10:48] LABS: Alanine Aminotransferase 67 U/L (0-40); Albumin Level 4.1 g/dL (3.5-5.0); Alkaline Phosphatase 108 U/L (39-117); Aspartate Amino Transferase 38 U/L (5-37); Cholesterol 170 mg/dL (<200); HDL Cholesterol 46 mg/dL (>40); Total Protein 7.6 g/dL (6.5-8.0); Triglycerides 69 mg/dL (<150)
== END 2025-03-30 07:05 | disposition home or self-care (01) ==
LOC: HO.HMGCLDS 07:04
PROVIDERS: PCP Nurse Practitioner Family; Visit Provider Nurse Practitioner Family
DX: E78.5 Hyperlipidemia, unspecified (principal)
CPT/HCPCS: 36415; 80061; 80076

== ENCOUNTER 2025-04-02 15:15 | Outpatient (AMB) | payer OTHER, SELFPAY ==
--- NOTE | 2025-04-02 15:17 | A.OFFPC_ITS ---
Vital Signs 04/02/25 15:23 04/02/25 15:40 Height 5 ft 7 in Weight 353 lb 8 oz BMI 55.4 BP 139/70 110/70 Blood Pressure Location Rt brachial Rt brachial Position Sitting Sitting Respiration 16 Pulse 89 Pulse Source Pulse Oximeter Temp 98.4 F Temp Source Oral Pulse Oximetry (%) 98 Oxygen Delivery Method Room Air Intake Visit Reasons: Elevated AST microcytic anemia Intake Note: patient here for follow up on elevated AST microcytic anemia Order Make Up Clerk Required: No Allergies No Known Allergies Allergy (Verified 04/02/25 15:21) Tobacco use date assessed: 04/02/25 Dental Screening Dental Screen Date: 04/02/25 Did you have a dental visit in the last 12 months?: No Did you have a dental problem in the last 6 months where you did not have access to dental care?: No Was dental information given to patient?: Yes HPI HPI Comments History of Present Illness Details 29-year-old male presents for anemia, dy slipidemia, and elevated ALT follow-up. He starting weight management with [employer] and was prescribed semaglutide about 3 months ago. He has lost 12 lb since his last visit. No acute symptoms at this time. [facility] Social History Housing: Apartment Patient Tobacco Use Status: Never used Tobacco e-Cigarette/Vaping Use: Never Used Second Hand Smoke Exposure: No service: No Current occupational status: employed Current occupation: cyber information security consultant Current occupational exposures/hazards: No Cognitive needs: No Hearing needs: No Vision needs: No Questionnaire Thrive Questionnaire Date Thrive assessed: 10/30/24 I am a: Patient What is your living situation today?: I have a steady place to live Within the past 12 months, did the food you bought not last and you didn't have the money to get more?: Never true Within the past 12 months, did you worry whether your food would run out before you got money to buy more?: Sometimes True Do you have trouble paying for medicines?: I choose not to answer this question Do you have trouble getting transportation to medical appointments?: Yes Do you have trouble paying your heating and electricity bill?: No Do you have trouble taking care of your child, family member or friend?: No Do you have trouble with day-to-day activities such as bathing, preparing meals, shopping, managing finances, etc.?: No Are you currently unemployed and looking for a job?: No Are you interested in more education?: I choose not to answer this question Please select the resources that you would like help with: None Currently or been in a relationship where the following occur: No concerns reported THRIVE Score: 2 COLBY-7 AMB Questionnaire COLBY-7 Date COLBY - 7 assessed: 10/31/24 Source: Developed by Drs. Dave Coleman, Lara Sainz, Barrington Lerner and colleagues, with an educational florencio from [email or web address]. Review of Systems Const Details: Const Denies chills, Denies fatigue, Denies fever(s), Denies headache(s) and Denies weakness ENT Denies dizziness and Denies headache(s) Card Denies chest pain, Denies lightheadedness, Denies dyspnea and Denies other (Palpitations) Resp Denies cough, Denies dyspnea, Denies wheezing and Denies other ( shortness of breath) GI Denies abdominal pain, Denies melena, Denies hematochezia, Denies change in bowel habits, Denies dyspepsia and Denies nausea Denies hematuria and Denies dysuria Musc Denies abnormal gait, Denies myalgias, Denies arthralgias, Denies numbness and Denies tingling Skin/Breast Denies rash, Denies unusual bruising and Denies wounds Neuro Denies abnormal gait, Denies dizziness, Denies headache(s), Denies memory loss, Denies numbness, Denies Sensory deficit (Neuro), Denies tingling and Denies weakness Psych Denies anxiety, Denies depression, Denies memory loss Endo Denies cold intolerance, Denies fatigue, Denies heat intolerance, Denies polydipsia and Denies polyuria Aller/Immun Denies wheezing Physical exam (Primary Care) Tobacco/Smoking Status: Tobacco use Status Tobacco use date assessed 11/17/24 11/17/24 09:45 Patient Tobacco Use Status Never used Tobacco 11/17/24 09:45 e-Cigarette/Vaping Use Never Used 11/17/24 09:45 Thrive Assessment: Date of Thrive Assessment Date Thrive assessed 10/30/24 11/17/24 09:45 Currently or been in a relationship where the following occur: No concerns reported Const Other: General: no acute distress and well developed Nutritional Appearance: well nourished Orientation/consciousness: patient oriented x3 [facility] Head: Yes normocephalic and Yes atraumatic Eyes General: appearance normal, both eyes and all related structures Pupils: Equal, round and reactive pupils present EOM: EOMs intact bilaterally Resp Effort & Inspection: normal respiratory effort Auscultation: clear to auscultation bilaterally Cardio Rate: regular rate Rhythm: regular rhythm Heart sounds: S1 normal heart sound present, S2 normal heart sound present, no gallops, no murmurs and no rubs GI Palpation (GI): No Abdominal aortic bruit present, Soft to palpation, nontender, No hepatosplenomegaly present and No Rebound tenderness present Auscultation: normal bowel sounds General: Yes no CVA tenderness Back/Spine/Pelvis Back: no CVA tenderness Cervical Spine: cervical ROM normal and No Cervical spine tenderness Thoracic/Lumbar Spine: thoraco-lumbar ROM normal, No pain with thoraco-lumbar ROM, No thoracic spinal tenderness and No lumbar spinal tenderness Extrem General: Yes normal to inspection, No edema and No calf tenderness Skin General: warm and dry. Normal skin color. Normal skin turgor Neuro General: patient oriented x3, gait normal and no focal neuro deficit Cranial nerves: Yes Equal, round and reactive pupils present Cognition (Neuro): normal cognition Gait exam (Neuro): Normal gait present Sensory Exam: No Sensory deficit (Neuro) Psych Appearance: grossly normal Affect: normal affect Attitude: cooperative Thought process: Normal thought process present Coding Level of Care Code Est Pt Level 3 (58255) Diagnoses Microcytic anemia D50.9 Dyslipidemia E78.5 Transaminitis R74.01 Assessment & Plan Assessment & Plan (1) Microcytic anemia: Code(s): D50.9 - Iron deficiency anemia, unspecified Category: Medical Plan: H&H and MCV level in November were slightly low. Iron studies, vitamin B12, and folate levels were normal. No acute symptoms. Will monitor CBC annually or as needed. Follow-up for an extended physical exam on/after 10/31/2025. Return sooner with symptoms or concerns. Verbalized understanding and agreed with the plan. (2) Dyslipidemia: Code(s): E78.5 - Hyperlipidemia, unspecified Category: Medical Plan: Recent LDL level is elevated, 111, improved from 124; HDL level was normal. Advised to limit foods high in saturated fat and avoid foods high in trans fat. Routine exercise encouraged. Will monitor lipid panel annually or as needed. Verbalized understanding and agreed with the plan. (3) Transaminitis: Code(s): R74.01 - Elevation of levels of liver transaminase levels Category: Medical Plan: Recent AST and ALT levels are elevated, 38 and 67 respectively. Likely hepatic steatosis. Healthy diet and routine exercise encouraged. He is currently on semaglutide for weight management and has lost 12 lb in the past 4 months. Liver enzymes may likely improve if his weight continues to drop. No acute symptoms at this time. Will monitor lipid panel annually or as needed. Verbalized understanding and agreed with the plan.
[2025-04-02 15:23] VITALS: BP 139/70; PULSE 89; RESP 16; TEMP 36.9; O2SAT 98; BMI 55.4
--- OUTSIDE RECORDS SUMMARY | 2025-04-02 15:38 | XMS_ITS | Clinical Summary ---
Author Organization [address] [place] [address] [address] [place] [address] Phone Care Team Providers Care Cost Estimating Engineer Name Role Phone RinaLydia anderson MILA Primary Care Provider [phone] Allergies No known active allergies Medications No known medications Encounters Date Type Department Care Team Description 01/08/2025 3:30 PM EDT Consult Bariatric Surgery [facility] [address] [facility] [address] [place] [address] Lo Blas MD Class 3 [...] complete this topic Insurance [employer] Care Teams Cost Estimating Engineer Relationship Specialty Start Date End Date Lydia Flynn FNP [address] [place] [phone] PCP - General Family Medicine 12/25/24
[2025-04-02 15:40] VITALS: BP 110/70
== END 2025-04-02 15:42 | disposition home or self-care (01) ==
LOC: HO.HMCFM 15:16
PROVIDERS: PCP Nurse Practitioner Family; Visit Provider Nurse Practitioner Family
DX: D50.9 Iron deficiency anemia, unspecified (principal); E78.5 Hyperlipidemia, unspecified; R74.01 Elevation of levels of liver transaminase levels